=== PATIENT | female | born 1995 | race Caucasian/White ===

== ENCOUNTER 2018-12-11 12:54 | Emergency (ER) | payer OTHER ==
[~2018-12-11] VITALS: Ht 162.6 cm; Wt 97.7 kg
[2018-12-11 12:55] VITALS: BP 131/82
== END 2018-12-11 16:13 | disposition home or self-care (01) ==
LOC: M ED 12:54
DX: Z32.02 Encounter for pregnancy test, result negative (principal); R11.0 Nausea; Z77.098 Contact with and (suspected) exposure to other hazardous, chiefly nonmedicinal, chemicals

== ENCOUNTER → 2019-06-05 | Outpatient (CLI) | payer OTHER ==
[~2019-06-05] VITALS: Ht 162.6 cm; Wt 116.1 kg
[2019-06-05 19:46] VITALS: BP 135/64
--- NOTE | 2019-06-06 12:52 | HPE ---
DATE OF ADMISSION: 06/05/2019 A 23-year-old 1, para 0, last menstrual period (LMP) 11/17/2018, estimated date of confinement (EDC) 09/03/2019 at 27 at 2 weeks of gestation. Has had a 24-hour history of lower back pain and midabdominal pain when she is walking around. Her risk factors are her body mass index (BMI) is 41.2, she is Rh negative, and the baby has echogenic focus. Her laboratories are O negative, HIV negative, hepatitis negative, rapid plasma reagin (RPR) negative, varicella immune. Pap normal. Urine negative. Gonorrhea is negative. Chlamydia was positive with test of cure negative. Early 1-hour glucose tolerance test (GTT) was 121. Blood pressure is 135/64, respirations 18, pulse 81, temperature is 98.1. Urine is 1.015, pH is 8, and negative for everything else. On examination, no distress. Symphysis fundus height is 28. No contractions. Category one strip. Vertex presenting. Four-quadrant bowel sounds are noted. No vaginal bleeding or blood loss. There is periodic back pain, which is mechanical. As she has a rather protuberant abdomen, we explained to her that using a maternity belt may help relieve some of that pressure. Urine was negative. Therefore, there are no issues regarding urinary tract infection or kidney stone and abdominal discomfort is because of the distention of the uterus at 28 weeks of gestation. She also has to increase her fluids because her urine is very concentrated. She has an appointment in 1 weeks' time with [facility] ([facility]). Not doing centering. The patient was counseled with precautions. The rest of the examination is unremarkable. Normocephalic, atraumatic. Neck: Full range of motions. Pupils equal and reactive to light. Distal pulses symmetric. No evidence of deep venous thrombosis (DVT), pulmonary embolism (PE), or superficial phlebitis. Chest is clear bilaterally to bases. No wheezes or rhonchi. No costovertebral angle (CVA) tenderness. No rashes, lesions, or pruritus. No arthralgia or myalgia. No complaint of joint pain. No cough, wheeze, shortness of breath, or dyspnea on exertion. No nausea, vomiting, diarrhea, or constipation. No urgency, dysuria, or frequency. In summary, we have a 27+ week of gestation with mechanical back issues. Discharged undelivered, to followup with her clinic.
== END ==
LOC: M LDO 19:24
PROVIDERS: ATTEND Obstetrics & Gynecology
DX: O26.892 Other specified pregnancy related conditions, second trimester (principal); Z3A.27 27 weeks gestation of pregnancy; M54.5 Low back pain
CPT/HCPCS: 59025; G0378; G0463

== ENCOUNTER 2019-06-27 15:07 | Outpatient (CLI) | payer OTHER ==
[~2019-06-27] VITALS: Ht 162.6 cm; Wt 118.3 kg
[2019-06-27 15:26] VITALS: BP 117/72
[2019-06-27 17:31] LABS: HEMATOCRIT 37.9 % (36.0-47.0); MEAN CORPUSCULAR HEMOGLOBIN 27.1 pg (27.0-33.0); MEAN CORPUSCULAR HGB CONC 31.7 g/dl (32.0-36.5); MEAN CORPUSCULAR VOLUME 85.6 fl (80.0-96.0); PLATELET COUNT, AUTOMATED 288 10^3/uL (150-450); RED BLOOD COUNT 4.43 10^6/uL (4.00-5.40); WHITE BLOOD COUNT 11.3 10^3/uL (4.0-10.0)
--- NOTE | 2019-06-27 17:39 | IPNPDOC ---
Text Note Date of Service The patient was seen on 06/27/19. NOTE 24 yo at 30+1 weeks gestation presented to L&D with the complaint of in termittent dizziness over the last several months. She reports when she stands quickly after sitting for a long time that she often experiences episodes of dizziness. This is accompanied by occasional weakness and a feeing "hot" sensation. The dizziness resolves when she sits or lays down. She denies any nausea or vomiting or actual episodes of passing out. She also denies any heart palpitations or headaches or fevers/chills. She has no obstetric complaints today such as vaginal bleeding, contractions, or leakage of fluid. She endorses excellent movement. Vitals - VSS, afebrile, normotensive, non tachycardic General - AAOX3, sitting up in bed, pleasant and conversant, NAD HEENT - Cranial nerves II - XII grossly intact Abdomen - Gravid uterus. No fundal tenderness FHR tracing - Cat I throughout monitoring and appropriate for gestational age. +accels (10X10), no decels, moderate variability. No ctx on toco. Labs: TSH - 11.1 Free T4 - 0.79 CBC - 11.3>12.0/37.9<288 BMP - 139/4.0--105/27--6/0.47<87 No sign of any acute cardiac or neurologic issues. Queenie is asymptomatic at rest and dizziness occurs sporadically and mostly just after standing quickly from sitting down. Note made of elevated TSH, however free T4 is normal. Will repeat TSH as an outpatient and if still elevated and patient still symptomatic, will consider starting thyroid replacement therapy. Reassuring status. Patient not anemic. She was discharged home with return precautions. She will follow up within a week in the office. Return to care sooner for any urgent concerns. All patient questions answered. DO ANTONIO Chaudhry Fishbone I+O Eliezer ALVAREZ, I+O Laboratory Tests 06/27/19 17:11 Vital Signs Date Time Temp Pulse Resp B/P (MAP) Pulse Ox O2 Delivery O2 Flow Rate FiO2 06/27/19 15:26 99.2 100 18 117/72 (87) VONDA KING DO Jun 27, 2019 17:39
[2019-06-27 18:02] LABS: BLOOD UREA NITROGEN 6 MG/DL (7-18); CALCIUM LEVEL 8.8 MG/DL (8.5-10.1); CARBON DIOXIDE LEVEL 27 MEQ/L (21-32); CHLORIDE LEVEL 105 MEQ/L (98-107); CREATININE FOR GFR 0.47 MG/DL (0.55-1.30); FREE T4 0.79 NG/DL (0.76-1.46); GLOMERULAR FILTRATION RATE > 60.0 (>60); GLUCOSE, FASTING 87 MG/DL (70-100); SODIUM LEVEL 139 MEQ/L (136-145)
== END 2019-06-27 20:21 | disposition home or self-care (01) ==
LOC: M LDO 15:07
PROVIDERS: ATTEND Obstetrics & Gynecology
DX: O99.89 Other specified diseases and conditions complicating pregnancy, childbirth and the puerperium (principal); R42 Dizziness and giddiness; Z3A.30 30 weeks gestation of pregnancy
CPT/HCPCS: 36415; 59025; 80048; 84439; 84443; 85027; G0378; G0463

== ENCOUNTER 2019-07-02 12:43 | Outpatient (CLI) | payer OTHER ==
[~2019-07-02] VITALS: Ht 162.6 cm; Wt 119.4 kg
[2019-07-02 13:01] VITALS: BP 139/84
[2019-07-02 13:30] LABS: APPEARANCE, URINE CLOUDY (CLEAR); BACTERIA, URINE AUTO 3+ (NEGATIVE); BILIRUBIN, URINE AUTO NEGATIVE (NEGATIVE); BLOOD, URINE BLOOD 2+ (NEGATIVE); COLOR, URINE YELLOW (YELLOW); GLUCOSE, URINE (UA) AUTO NEGATIVE (NEGATIVE); KETONE, URINE AUTO TRACE mg/dL (NEGATIVE); LEUKOCYTE ESTERASE, URINE AUTO 3+ (NEGATIVE); MUCUS, URINE SMALL (NEGATIVE); NITRITE, URINE AUTO POSITIVE (NEGATIVE); PROTEIN, URINE AUTO 1+ mg/dL (NEGATIVE); RBC, URINE AUTO 18 /HPF (0-3); SPECIFIC GRAVITY URINE AUTO 1.029 (1.002-1.035); SQUAMOUS EPITHELIAL CELL UR AU 8 /HPF (0-6); TRANSITIONAL EPITHELIAL AUTO 1 /HPF; UROBILINOGEN, URINE AUTO 0.2 mg/dL (0.0-2.0); WBC, URINE AUTO TNTC /HPF (0-3)
[2019-07-02 14:03] VITALS: BP 126/68
[2019-07-02 14:54] LABS: BASO % 0.3 % (0.0-1.0); EOS # 0.2 10^3/uL (0.0-0.5); EOS % 1.3 % (0.0-3.0); HEMATOCRIT 38.9 % (36.0-47.0); HEMOGLOBIN 12.2 g/dl (12.0-15.5); LYMPH # 1.5 10^3/uL (1.5-5.0); LYMPH % 12.7 % (24.0-44.0); MEAN CORPUSCULAR HEMOGLOBIN 26.6 pg (27.0-33.0); MEAN CORPUSCULAR HGB CONC 31.4 g/dl (32.0-36.5); MEAN CORPUSCULAR VOLUME 84.7 fl (80.0-96.0); MONO # 0.7 10^3/uL (0.0-0.8); MONO % 5.8 % (0.0-5.0); NEUTROPHILS # 9.5 10^3/uL (1.5-8.5); NEUTROPHILS % 79.1 % (36.0-66.0); PLATELET COUNT, AUTOMATED 304 10^3/uL (150-450); RED BLOOD COUNT 4.59 10^6/uL (4.00-5.40); WHITE BLOOD COUNT 11.9 10^3/uL (4.0-10.0)
--- NOTE | 2019-07-02 19:28 | IPNPDOC ---
Text Note Date of Service The patient was seen on 07/02/19. NOTE Triage Note Queenie is a 24yo with SIUP at approx 31wk presenting with lower pelvic discomfort and low back discomfort that started this morning. She notes she went to work at 0600 and throughout the morning has had what she calls uterine tightness (not intermittent, but constant) and a pain that goes down into her vagina. She has had no LOF, no vaginal bleeding, and she feels good movement. No fevers/chills. No nausea/vomiting. No pain with urination or abnorm al vaginal discharge. 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 NO e/o PTL with SCE closed/thick/high. status reassuring, benign exam. Plan: -Paper script given for macrobid 100mg BID x5 days -urine culture pending -Patient endorses tested positive for influenza B and she has not received her flu vaccine because in the past she had "adverse reactions" such as bronchitis. I explained to the patient that flu in can potentially be fatal and I highly recommended that she receive the flu vaccine because the bronchitis she had previously was absolutely unrelated to flu vaccine. However, she continues to decline the vaccine. -Discussed with patient increased hydration -Discussed with patient return precautions, especially for fevers/chills and persistent back pain -Keep next OB appt on 07/04/19 -Safe for discharge home MD ANTONIO AlejandraEliezer I+O VSEliezer I+O Laboratory Tests 07/02/19 14:33 Vital Signs Date Time Temp Pulse Resp B/P (MAP) Pulse Ox O2 Delivery O2 Flow Rate FiO2 07/02/19 14:03 94 126/68 (87) 07/02/19 13:01 97.7 20 Ashley Hernández MD Jul 02, 2019 19:28
== END 2019-07-02 15:35 | disposition home or self-care (01) ==
LOC: M LDO 12:43
PROVIDERS: ATTEND Obstetrics & Gynecology
DX: O26.893 Other specified pregnancy related conditions, third trimester (principal); R10.30 Lower abdominal pain, unspecified; O23.43 Unspecified infection of urinary tract in pregnancy, third trimester; Z3A.31 31 weeks gestation of pregnancy
CPT/HCPCS: 36415; 59025; 81001; 85025; 87088; 87186; G0378; G0463

== ENCOUNTER 2019-07-15 19:44 | Outpatient (CLI) | payer OTHER ==
[2019-07-15 20:09] VITALS: BP 118/82
[2019-07-15 21:20] LABS: FREE T4 0.77 NG/DL (0.76-1.46); THYROID STIMULATING HORMONE 12.3 uIU/ML (0.358-3.740)
--- NOTE | 2019-07-15 21:41 | IPNPDOC ---
Text Note Date of Service The patient was seen on 07/15/19. NOTE 24 yo at 32+6 weeks gestation presented to L&D with the complaint of periodic dizziness and intermittent nausea. This has been a chronic problem for Ms. Burciaga and she has been seen a few times for this. She reports chronic dizziness spells over the last several months. She mostly notices this at times when standing up quickly after sitting down for a long time. She occasionally has blurry vision during these episodes and nausea. She denies any vomiting. She also denies any fevers/chills, SOB, chest pain, or dysuria. She has a history of thyroid disease prior to and she was on 25mcg daily Synthroid before she became . She not been on it since she became . Vitals - VSS, afebrile, normotensive, HR 100s, pulse ox 97-100% on RA General - AAOX3, sitting up in bed, NAD, pleasant and conversant Abdomen - Gravid uterus, no fundal tenderness NST - BL 155, moderate variability, +accels, no decels, Cat I. Intermittent breaks in tracing due to movement and patient movement. No ctx on toco. Labs: TSH - 12.3 Free T4 - 0.77 No signs of acute disease. TSH elevated, but free T4 normal. However, given her persistent symptoms, will initiate treatment of 25mcg daily Synthroid. I ordered the script at the [facility]. Reassuring status. Note given to be excused for work until her next clinic OB appointment on 21Jul2019. Return precautions discussed. All questions answered. DO ANTONIO Chaudhry Fishbone, I+O VSEliezer, I+O Vital Signs Date Time Temp Pulse Resp B/P (MAP) Pulse Ox O2 Delivery O2 Flow Rate FiO2 07/15/19 20:34 108 07/15/19 20:09 97.4 18 118/82 (94) VONDA KING DO Jul 15, 2019 21:41
== END 2019-07-15 21:30 | disposition home or self-care (01) ==
LOC: M LDO 19:44
PROVIDERS: ATTEND Obstetrics & Gynecology
DX: O26.893 Other specified pregnancy related conditions, third trimester (principal); R42 Dizziness and giddiness; R11.0 Nausea; O99.280 Endocrine, nutritional and metabolic diseases complicating pregnancy, unspecified trimester; R94.6 Abnormal results of thyroid function studies; Z3A.32 32 weeks gestation of pregnancy
CPT/HCPCS: 36415; 59025; 84439; 84443; G0378; G0463

== ENCOUNTER 2019-07-28 06:28 | Outpatient (CLI) | payer OTHER ==
[~2019-07-28] VITALS: Ht 162.6 cm; Wt 119.7 kg
[2019-07-28 06:47] VITALS: BP 140/82
[2019-07-28 07:14] VITALS: BP 118/86
[2019-07-28 07:39] VITALS: BP 138/80
[2019-07-28] MEDS ORDERED: BETAMETHASONE SOLUSPAN 6MG/ML INJ 5ML (J0702) As Ordered ONE (10:25)
[2019-07-28] MEDS ORDERED: BETAMETHASONE SOLUSPAN 6MG/ML INJ 5ML (J0702) IM SCH (10:30)
[2019-07-28 11:06] LABS: AMORPHOUS SEDIMENT SMALL (NEGATIVE); APPEARANCE, URINE CLEAR (CLEAR); BACTERIA, URINE AUTO 1+ (NEGATIVE); BILIRUBIN, URINE AUTO NEGATIVE (NEGATIVE); BLOOD, URINE BLOOD NEGATIVE (NEGATIVE); COLOR, URINE YELLOW (YELLOW); GLUCOSE, URINE (UA) AUTO NEGATIVE (NEGATIVE); KETONE, URINE AUTO 1+ mg/dL (NEGATIVE); LEUKOCYTE ESTERASE, URINE AUTO NEGATIVE (NEGATIVE); MUCUS, URINE SMALL (NEGATIVE); NITRITE, URINE AUTO NEGATIVE (NEGATIVE); PROTEIN, URINE AUTO NEGATIVE (NEGATIVE); RBC, URINE AUTO 0 /HPF (0-3); SQUAMOUS EPITHELIAL CELL UR AU 1 /HPF (0-6); UROBILINOGEN, URINE AUTO 0.2 mg/dL (0.0-2.0); WBC, URINE AUTO 0 /HPF (0-3)
--- NOTE | 2019-07-28 11:36 | HPE ---
DATE OF ADMISSION: 07/28/2019 This lady came to triage. She is a 24-year-old, 1, para 0, last menstrual period (LMP) 11/17/2018 and expected date of confinement (EDC) of 09/03/2019, at 34 and 6 weeks of gestation with a history of back pain and vaginal discharge, but no griselda vaginal bleeding. She had intercourse two days ago and has some increase in her back pain. Her risk factors is she is Rh negative with body mass index (BMI) of 41.2. She was STD positive for Chlamydia, test of cure negative. She is hypothyroid and she had a history of UTI treated with Macrobid, but no test of cure was done. Her 1-hour glucose was 133. Blood pressure highest was 140/82, the rest were normal. Pulse was 94. Respirations are 20. Temperature is 97.8. Urine was 1.010, pH 6 and a +1 ketones, trace of leukocytes. On examination, symphysis fundus height is appropriate. Four quadrant bowel sounds are noted. Category one strip. She had a BPP done which showed a biophysical of 8/8, vertex presenting, appropriate amniotic fluid. Cervical length by ultrasound showed 3.4 cm, but did not show any funneling. However, on sterile speculum examination, we visualized that the external loss was open. There was no bleeding. There was white discharge, possibly semen related. On digital examination, 1 cm right up through to the internal os. Our plan of care was to give her steroids times 24 hours, repeat her urine for culture and sensitivity for test of cure, and weekly appointments at the clinic. She is presently on monitoring at 32-36 weeks and having an KADY of 38. However, it is unlikely that she will make 38 weeks gestation. The patient expressed understanding of the plan of care. Diagrams were drawn and given to her. Numbers were applied to the diagrams. We have made an appointment for her for 1 week from today for evaluation of cervical length as well as an NST regarding contractions. The patient was counseled regarding kick chart, premature rupture of membranes and bleeding. She was discharged undelivered. We spent 1 hour with the patient.
--- NOTE | 2019-07-28 12:36 | REP ---
LIMITED OBSTETRIC SONOGRAPHY: HISTORY: For biophysical profile and assessment of cervical length. On speculum and digital examination, the cervix is open. Findings were discussed with the referring provider Dr. Da Silva. FINDINGS: Scanning demonstrates a living intrauterine gestation in a cephalic lie. Placenta is posterior without evidence of placenta previa or abruption, grade 1. Transvaginal scanning through the cervix demonstrates a cervical length measurement of 3.4 cm. The cervix appears to be closed on sonographic imaging although there is hypoechoic material along the cervical mucosa, between it and the hyperechoic cervical musculature. This in combination with the clinical history suggests the possibility of mucous material in the endocervical canal. No definite funneling is seen sonographically Biophysical profile score is 8 out of a possible 8. KADY is 10.3 cm (8.0-24.9 cm). heart rate is recorded at 139 beats per minute. S/D ratio is normal at 2.50. Electronically Signed by Juan Carlos Jeffery MD 07/28/2019 06:27 P
[2019-07-29] MEDS ORDERED: ACET-683 PO (10:09)
[2019-07-29] MEDS ORDERED: LEVO25TA5 PO (10:09)
== END 2019-07-28 10:40 | disposition home or self-care (01) ==
LOC: M LDO 06:28
PROVIDERS: ATTEND Obstetrics & Gynecology
DX: O26.893 Other specified pregnancy related conditions, third trimester (principal); M54.5 Low back pain; N89.8 Other specified noninflammatory disorders of vagina; Z3A.34 34 weeks gestation of pregnancy
CPT/HCPCS: 59025; 76815; 76817; 76819; 76820; 81001; 96372; G0378; G0463; J0702

== ENCOUNTER 2019-07-29 09:48 | Outpatient (CLI) | payer OTHER ==
[~2019-07-29] VITALS: Ht 162.6 cm; Wt 119.5 kg
[2019-07-29] MEDS ORDERED: BETAMETHASONE SOLUSPAN 6MG/ML INJ 5ML (J0702) IM ONE (10:00)
[2019-07-29 10:04] VITALS: BP 122/77
[2019-07-29] MEDS ORDERED: ACET-683 PO (10:09)
[2019-07-29] MEDS ORDERED: LEVO25TA5 PO (10:09)
[2019-07-29 10:59] VITALS: BP 125/75
== END 2019-07-29 11:00 | disposition home or self-care (01) ==
LOC: M LDO 09:48
PROVIDERS: ATTEND Obstetrics & Gynecology
DX: O34.33 Maternal care for cervical incompetence, third trimester (principal); Z3A.34 34 weeks gestation of pregnancy
CPT/HCPCS: 96372; G0378; J0702

== ENCOUNTER 2019-07-29 17:31 | Outpatient (CLI) | payer OTHER ==
[~2019-07-29] VITALS: Ht 162.6 cm; Wt 119.5 kg
[~2019-07-29 17:31] MED LIST: ACET-683 PO; LEVO25TA5 PO
--- NOTE | 2019-07-29 18:49 | IPNPDOC ---
Text Note Date of Service The patient was seen on 07/29/19. NOTE Triage Note Subjective: Queenie Burciaga is a 24yo with SIUP at approx 34wk who presents today for decreased movement. She called the call pager and stated only 3 movements in 2 hours after eating a popsicle. I encouraged her to drink and eat more and wait 1 more hour and she came in because she still did not get adequate movements. She was here earlier today for 2nd betamethasone injection. She received the first yesterday when Dr. Da Silva checked her cervix and found it to be somewhat dilated though thick. She has had no LOF, no ctx, no vaginal bleeding. Objective: Vitals wnl, afebrile General: WDWN, obese female Abdomen: soft, gravid, NTTP Cat I FHRT with +accels, -decels, mod toña [place]: no ctx Radiology: 07/28/2019 LIMITED OBSTETRIC SONOGRAPHY: FINDINGS: Scanning demonstrates a living intrauterine gestation in a cephalic lie. Placenta is posterior without evidence of placenta previa or abruption, grade 1. Transvaginal scanning through the cervix demonstrates a cervical length measurement of 3.4 cm. The cervix appears to be closed on sonographic imaging although there is hypoechoic material along the cervical mucosa, between it and the hyperechoic cervical musculature. This in combination with the clinical history suggests the possibility of mucous material in the endocervical canal. No definite funneling is seen sonographically Biophysical profile score is 8 out of a possible 8. KADY is 10.3 cm (8.0-24.9 cm). heart rate is recorded at 139 beats per minute. S/D ratio is normal at 2.50. Assessment: Queenie Burciaga is a 24yo with SIUP at approx 34wk with reassuring assessment. Reactive NST and yesterday BPP was 8/8 with KADY 10.3cm. Vitals wnl, benign exam. Plan: -safe for discharge home -keep next ob appt on Aug 04 -discussed return precautions MD Betty Alejandra Katrina D MD Jul 29, 2019 18:49
== END 2019-07-29 18:45 | disposition home or self-care (01) ==
LOC: M LDO 17:31
PROVIDERS: ATTEND Obstetrics & Gynecology
DX: O36.8130 Decreased fetal movements, third trimester, not applicable or unspecified (principal); Z3A.34 34 weeks gestation of pregnancy; O99.213 Obesity complicating pregnancy, third trimester; E66.9 Obesity, unspecified
CPT/HCPCS: 59025; G0378; G0463

== ENCOUNTER 2019-08-03 18:22 | Outpatient (CLI) | payer OTHER ==
[~2019-08-03] VITALS: Ht 162.6 cm; Wt 120.5 kg
[2019-08-03 18:46] VITALS: BP 115/61
[2019-08-03] MEDS ORDERED: TUMS750C22 PO (18:46)
--- NOTE | 2019-08-03 19:58 | IPNPDOC ---
Text Note Date of Service The patient was seen on 08/03/19. NOTE patient is a 24 yo at 34+5wks presents with concern for elevated BP taken at [facility]. patient reports she has had intermittent NUÑEZ at home, she has not taken medication for NUÑEZ. NUÑEZ goes away on its own. now denies CTX/LOF/VB. +FM Vitals: normal x 3 NAD, laying in bed abd: gravid fht: 155/mod toña/pos accel/no decel toco: quiet a/p patient @ 34+5wks, doing well, normal exam today. no e/o pre-eclampsia. discussed with patient s/s of pre-e. patient has appointment tomorrow at clinic. DO Mary VS,Eliezer, I+O VS, [place], I+O Vital Signs Date Time Temp Pulse Resp B/P (MAP) Pulse Ox O2 Delivery O2 Flow Rate FiO2 08/03/19 18:46 96.6 103 18 115/61 (79) MICHAEL ARGUETA DO Aug 03, 2019 19:52
== END 2019-08-03 20:30 | disposition home or self-care (01) ==
LOC: M LDO 18:22
PROVIDERS: ATTEND Advanced Practice Midwife
DX: O99.89 Other specified diseases and conditions complicating pregnancy, childbirth and the puerperium (principal); R51 Headache; R03.0 Elevated blood-pressure reading, without diagnosis of hypertension; Z3A.34 34 weeks gestation of pregnancy
CPT/HCPCS: 59025; G0378; G0463

== ENCOUNTER 2019-08-08 21:41 | Outpatient (CLI) | payer OTHER ==
[~2019-08-08] VITALS: Ht 162.6 cm; Wt 121.6 kg
[~2019-08-08 21:41] MED LIST changes: +TUMS750C22 PO
[2019-08-08 21:56] VITALS: BP 129/71
--- NOTE | 2019-08-08 22:31 | IPNPDOC ---
Text Note Date of Service The patient was seen on 08/08/19. NOTE patient is a 24 yo G1 @ 36+2wks gestation presents with concern for feeling intermittent sharp pain in her vagina since this AM. Also reports having sensation of intermittent abdominal cramping x 1 day. denies LOF/VB. +FM. vitals: normal NAD abd: gravid, soft, nt le: no edema erythema, nt speculum: white vaginal discharge, nt cervix visually closed ce: fingertip, long, high, medium wet prep: neg for clue cells/trich odell: neg whiff/hyphae/buds fht: 150/mod toña/pos accel/no decel toco: quiet a/p patient at 36+1wks, not in labor, no e/o infection. discussed return precautions. f/u as regularly scheduled. DO Mary VS,Eliezer, I+O VS, Fishbone, I+O Vital Signs Date Time Temp Pulse Resp B/P (MAP) Pulse Ox O2 Delivery O2 Flow Rate FiO2 08/08/19 21:56 97.8 108 129/71 (90) MICHAEL ARGUETA DO Aug 08, 2019 22:31
== END 2019-08-08 22:35 | disposition home or self-care (01) ==
LOC: M LDO 21:41
PROVIDERS: ATTEND Obstetrics & Gynecology
DX: O47.03 False labor before 37 completed weeks of gestation, third trimester (principal); Z3A.36 36 weeks gestation of pregnancy
CPT/HCPCS: 59025; G0378; G0463

== ENCOUNTER 2019-08-09 18:55 | Outpatient (CLI) | payer OTHER ==
[~2019-08-09] VITALS: Ht 162.6 cm; Wt 121.6 kg
[2019-08-09 19:32] VITALS: BP 126/78
[2019-08-09 21:00] LABS: APPEARANCE, URINE CLEAR (CLEAR); BACTERIA, URINE AUTO 2+ (NEGATIVE); BILIRUBIN, URINE AUTO NEGATIVE (NEGATIVE); BLOOD, URINE BLOOD 2+ (NEGATIVE); COLOR, URINE STRAW (YELLOW); GLUCOSE, URINE (UA) AUTO NEGATIVE (NEGATIVE); KETONE, URINE AUTO NEGATIVE (NEGATIVE); LEUKOCYTE ESTERASE, URINE AUTO 3+ (NEGATIVE); NITRITE, URINE AUTO NEGATIVE (NEGATIVE); PROTEIN, URINE AUTO NEGATIVE (NEGATIVE); RBC, URINE AUTO 1 /HPF (0-3); SPECIFIC GRAVITY URINE AUTO 1.003 (1.002-1.035); SQUAMOUS EPITHELIAL CELL UR AU 1 /HPF (0-6); UROBILINOGEN, URINE AUTO 0.2 mg/dL (0.0-2.0); WBC, URINE AUTO 20 /HPF (0-3)
[2019-08-09] MEDS ORDERED: cefTRIAXone SOD 1 GM in D5W MINI-BAG PLUS 50 ML IV ONE (21:00)
--- NOTE | 2019-08-09 21:44 | HPE ---
DATE OF ADMISSION: 08/09/2019 This lady is a 24-year-old 1, para 0, LMP 11/17/2018, EDC 09/03/2019 at 36 weeks of gestation with a history of vaginal pain and cervical pain. She was seen in triage less than 24 hours ago. She called the triage line during the day and she is here in triage at night. No contractions. No vaginal loss. No bleeding. No labor, just vaginal and cervical pain. Risk factors: She is Rh negative, BMI of 41.2, recurring UTIs, and she is hypothyroid. Laboratories: O negative, HIV negative, hepatitis negative, RPR negative, rubella immune. Varicella immune. Pap normal. Urine is negative. Gonorrhea was negative. Chlamydia was positive, test of cure was negative. 1-hour glucose 121 and 1 hour 28 glucose was 133. On examination, blood pressure 126/78, respirations 18, pulse 100, temperature is 97.0. She looks well hydrated. She is walking well. She has no gait issues. No balance issues. She had a category one strip with moderate variability and accelerations, no decelerations. No contractions. Urine was 1.003, pH of 7, 2+ bacteria, 3+ leukocytes. Urine was sent off for C and S, possibility of UTI in . She has had recurring multiple UTIs before. She was given a gram of Rocephin, to followup with oral antibiotics. Precautions were given and the patient was discharged undelivered. Maintain her appointment with the clinic on 08/19/2019.
== END 2019-08-09 22:55 | disposition home or self-care (01) ==
LOC: M LDO 18:55
PROVIDERS: ATTEND Obstetrics & Gynecology
DX: O99.89 Other specified diseases and conditions complicating pregnancy, childbirth and the puerperium (principal); Z3A.36 36 weeks gestation of pregnancy; N39.0 Urinary tract infection, site not specified
CPT/HCPCS: 59025; 81001; 87088; 87186; G0378; G0463; J0696

== ENCOUNTER 2019-08-15 20:33 | Outpatient (CLI) | payer OTHER ==
[~2019-08-15] VITALS: Ht 162.6 cm; Wt 121.4 kg
[2019-08-15 20:52] VITALS: BP 114/61
[2019-08-15] MEDS ORDERED: CEPH25SS PO (21:09)
--- NOTE | 2019-08-16 14:12 | HPE ---
DATE OF ADMISSION: 08/15/2019 HISTORY: 24-year-old 1, para 0, last menstrual period (LMP) 11/17/2018, expected date of confinement (EDC) of 09/03/2019, at 37 and 3 weeks of gestation, who came in because she was feeling off and dizzy and could not focus. Risk factors is she has recurring urinary tract infection (UTI) for which she is on medication. She was chlamydia positive, test of cure was negative. Body mass index (BMI) is 41.2. Rh is negative. Hyperthyroid. LABS: O negative. Antibodies are negative. Hepatitis negative. RPR negative. Rubella immune. Varicella immune. Pap normal. Urine negative. Gonorrhea was negative. Chlamydia was positive and test of cure was negative. Initial 1-hour glucose 121. Her 2-hour glucose was 133. On On examination today, does not appear in any distress. Seems to be able to focus well. Not complaining of any contractions, discharge or bleeding. Her gait appears to be normal. She has good balance. She has no visual field abnormalities. She can follow and focus. She is oriented to time and place. She is basically complaining of some uterine irritability secondary to movement. She has a category one strip, moderate variability, no decelerations, accelerations were noted. No contractions. She has no vaginal loss or bleeding. Blood pressure 114/61, respirations 18, pulse 104, temperature 97.1. Random glucose was 139. Urine is 1.025, pH is 5, rest is negative. In summary, we have a 37 weeks of gestation with 37 week complaints for which she was given reassurance. She has an appointment in 2 days time in the clinic for monitoring. Encouraged to keep that appointment. Precautions were given. The patient was discharged undelivered.
== END 2019-08-15 22:03 | disposition home or self-care (01) ==
LOC: M LDO 20:33
PROVIDERS: ATTEND Obstetrics & Gynecology
DX: O26.893 Other specified pregnancy related conditions, third trimester (principal); R42 Dizziness and giddiness; Z3A.37 37 weeks gestation of pregnancy; O23.43 Unspecified infection of urinary tract in pregnancy, third trimester; A74.9 Chlamydial infection, unspecified; O99.283 Endocrine, nutritional and metabolic diseases complicating pregnancy, third trimester; E05.90 Thyrotoxicosis, unspecified without thyrotoxic crisis or storm
CPT/HCPCS: 59025; G0378; G0463

== ENCOUNTER 2019-08-20 23:00 | Outpatient (CLI) | payer OTHER ==
[~2019-08-20] VITALS: Ht 162.6 cm; Wt 122.3 kg
[~2019-08-20 23:00] MED LIST changes: +CEPH25SS PO
[2019-08-20 23:12] VITALS: BP 127/70
--- NOTE | 2019-08-21 06:41 | HPE ---
DATE OF ADMISSION: 08/20/2019 This lady is a 24-year-old, 1, para 0, last menstrual period (LMP) 11/17/2018, expected date of confinement (EDC) 09/03/2019, at 38 weeks of gestation, who comes with history of decreased movement of 2 hours. This is her twelfth triage visit in the past 3 weeks. Her risk factors is she has a urinary tract infection (UTI) recurring, she had Chlamydia positive and test of cure negative, body mass index (BMI) is 41.2, Rh negative, and she is hypothyroid. On labs, O negative, hepatitis negative, RPR negative, rubella immune, varicella immune, Pap normal, urine negative, Gonorrhea negative, chlamydia positive and test of cure negative. 1-hour glucose 121, 28-week GTT was 133. Her blood pressure is 127/70, respirations 18, pulse 86 and temperature 97.6. Urine is not available. On examination, in no distress. Symphysis fundus height is 38, vertex presenting. Category one strip, moderate variability, accelerations noted, no decelerations, and no contractions. Ultrasound four quadrant, KADY is 12.84, the smallest pocket was 2.39 cm, vertex presenting, heart rate was 142 beats per minute, and spontaneous respirations are noted. Plan is the non-stress test (NST), discharge with instructions regarding kick chart, premature rupture of membranes, bleeding and when to call the provider. The patient was discharged undelivered. She has an appointment on 08/25/2019.
== END 2019-08-20 23:57 | disposition home or self-care (01) ==
LOC: M LDO 23:00
PROVIDERS: ATTEND Obstetrics & Gynecology
DX: O36.8131 Decreased fetal movements, third trimester, fetus 1 (principal); O23.43 Unspecified infection of urinary tract in pregnancy, third trimester; O99.285 Endocrine, nutritional and metabolic diseases complicating the puerperium; E03.9 Hypothyroidism, unspecified; Z3A.38 38 weeks gestation of pregnancy
CPT/HCPCS: 59025; 76815; G0378; G0463

== ENCOUNTER 2019-09-10 10:39 | Inpatient (IN) | payer OTHER ==
[~2019-09-10] VITALS: Ht 162.6 cm; Wt 124.6 kg
[2019-09-10] VITALS (8 sets, daily range): BP systolic 120–138; BP diastolic 61–83
[2019-09-10] MEDS ORDERED: LACTATED RINGER'S 1000 ML IV STA (11:01)
[2019-09-10 11:32] LABS: HEMATOCRIT 36.4 % (36.0-47.0); HEMOGLOBIN 12.1 g/dl (12.0-15.5); MEAN CORPUSCULAR HEMOGLOBIN 26.8 pg (27.0-33.0); MEAN CORPUSCULAR HGB CONC 33.2 g/dl (32.0-36.5); MEAN CORPUSCULAR VOLUME 80.7 fl (80.0-96.0); PLATELET COUNT, AUTOMATED 294 10^3/uL (150-450); RED BLOOD COUNT 4.51 10^6/uL (4.00-5.40); WHITE BLOOD COUNT 9.7 10^3/uL (4.0-10.0)
[2019-09-10] MEDS ORDERED: LR 1,000 ML IV SCH (12:00)
[2019-09-10] MEDS ORDERED: miSOPROStol 25 MCG 1/4 TAB (S0191) As Ordered ONE (12:00)
[2019-09-10] MEDS ORDERED: miSOPROStol 25 MCG 1/4 TAB (S0191) SL SCH (13:00)
--- NOTE | 2019-09-10 13:29 | HPEPDOC ---
Obstetrical History & Physical General Date of Admission Sep 10, 2019 at 10:39 History of Present Illness 24 yo G1 @41wks gestation presents for IOL for pending post dates. course complicated by maternal morbid obesity. today without concerns. 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 BREAST: . ABDOMEN: Gravid and non-tender to touch. FETUS: fetus is vertex (VTX) by Avtar and TAUS. HEART RATE: Regular rate and rhythm. LUNGS: Clear to auscultation (CTA). EXTREMITIES: non pitting edema. no erythema efw: 3800gm Vital Signs/I&O Vital Signs Date Time Temp Pulse Resp B/P (MAP) Pulse Ox O2 Delivery O2 Flow Rate FiO2 09/10/19 10:54 96.9 121 18 136/76 (96) Laboratory Data [facility] LABS Laboratory Tests 2 09/10/19 10:46: Serology Scanned Report Hepatitis B Testing 09/10/19 11:20: Nucleated Red Blood Cells % (auto) 0.0 CBC/BMP Laboratory Tests 09/10/19 11:20 Pertinent Laboratoy Data Blood Type: O- RBC Antibody Screen: Negative HIV: Negative Hepatitis B: Negative Rapid Plasma Reagin: Nonreactive Rubella: Immune Chlamydia/Gonorrhea: Negative Group B Streptococcus: Positive Anatomy Ultrasound Placenta Location: Posterior Normal Anatomy: Yes Placenta Previa: No Steroid Therapy Steroid Therapy: No Vaginal Examination Dilation: None Effacement: other Station: Other (high) Cervical Consistency: Firm Cervical Position: Posterior Presentation: Cephalic presentation Assessment Heart Rate (FHR): 145 Variability: Moderate Accelerations: Positive Decelerations: None Tocometer Contractions: No Assessment/Plan Assessment Patient is a 24 yo G1 @ 41wks gestation admitted for IOL for pinging post dates. Explained process of induction with patient starting with cervical ripening using medication and rosas balloon follows by AROM as well as oxytocin as indicated. External as well as internal monitoring of contractions and FHT discussed. Risks of emergent delivery, infection requiring antibioti cs, bleeding requiring blood transfusion and associated risks, use of forceps or vacuum for operative vaginal delivery in an emergency, and episiotomy explained to patient. Plan Admit and orient. 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 Diet: regular Group B Streptococcus (GBS) positive, start PCN once in active labor Labs and intravenous (IV) per unit protocol. cytotec, rosas bulb, pitocin and arom as needed for IOL pelvis adequate for trial of labor MICHAEL ARGUETA DO Sep 10, 2019 13:23
[2019-09-10] MEDS: miSOPROStol 50 MCG 1/2 TAB (S0191) SL SCH ×2 (15:59→20:03)
--- NOTE | 2019-09-10 20:40 | IPNPDOC ---
Text Note Date of Service The patient was seen on 09/10/19. NOTE patient feeling occasional cramping. no regular contractions. patient received her third dose of cytotec. vitals: normal fht: 140/mod toña/pos accel/no decel toco: irregular ctx a/p continue cervical ripening. check patient prior to next cytotec dose. Mary, VS,Fishbone, I+O VS, Fishbone, I+O Laboratory Tests 09/10/19 11:20 Vital Signs Date Time Temp Pulse Resp B/P (MAP) Pulse Ox O2 Delivery O2 Flow Rate FiO2 09/10/19 18:01 97.2 79 18 135/83 (100) MICHAEL ARGUETA DO Sep 10, 2019 20:40
[2019-09-11] VITALS (22 sets, daily range): BP systolic 108–148; BP diastolic 55–93
[2019-09-11] MEDS: miSOPROStol 50 MCG 1/2 TAB (S0191) SL SCH (00:12)
[2019-09-11] MEDS ORDERED: LEVOTHYROXINE 25MCG TABLET (0.025MG) PO SCH (06:00)
--- NOTE | 2019-09-11 06:09 | IPNPDOC ---
Text Note Date of Service The patient was seen on 09/11/19. NOTE Patient received 4 doses of cytotec, 25mcg x1 and 50mcg x 2 buccal. She is f eeling her contractions. vitals: normal NAD abd: gravid, nt fht: 130/mod toña/pos accel/ no decel toco: ctx q 2mins ce: 1-2/0/high, rosas bulb placed with 80cc on cervical side. a/p patient is not in labor. Continue induction. IV pain medication per request. additional cytotec once patient stops megha. start pcn once rosas bulb is out. DO Mary VS,Marvelbone, I+O VS, Fishbone, I+O Laboratory Tests 09/10/19 11:20 Vital Signs Date Time Temp Pulse Resp B/P (MAP) Pulse Ox O2 Delivery O2 Flow Rate FiO2 09/10/19 18:01 97.2 79 18 135/83 (100) MICHAEL ARGUETA DO Sep 11, 2019 06:09
[2019-09-11] MEDS ORDERED: MORPHINE 10 MG/ML 1ML VIAL (J2270) IM ONE (06:15)
[2019-09-11] MEDS ORDERED: MORPHINE 10 MG/ML 1ML VIAL (J2270) IV ONE (06:15)
[2019-09-11] MEDS ORDERED: PROMETHAZINE INJ 25 MG/ML VIAL (J2550) IV ONE ×2 (06:15→19:15)
[2019-09-11] MEDS ORDERED: PENICILLIN G POTASSIUM IV 5 MU in D5W MINI-BAG PLUS 100 ML IV STA (11:18)
[2019-09-11] MEDS ORDERED: OXYTOCIN DRIP 30 UNITS in IV 1 EA IV SCH (12:00)
[2019-09-11] MEDS: PENICILLIN G POTASSIUM IV 2.5 MU in IV 1 EA IV SCH ×2 (15:21→20:02)
--- NOTE | 2019-09-11 18:33 | IPNPDOC ---
Text Note Date of Service The patient was seen on 09/11/19. NOTE patient is feeling her contractions. coping without problem. SROM at around 1810. pit: 6mU/min fht: 150/mod toña/pos accel/no decel toco: ctx q 2-3 mins ce: 11/11/-2 a/p patient in latent labor. continue to titrate pit to effect. continue with PCN for GBS prophy. recheck in 6hrs. Le, DO VS,Marvelbone, I+O VS, Fishbone, I+O Vital Signs Date Time Temp Pulse Resp B/P (MAP) Pulse Ox O2 Delivery O2 Flow Rate FiO2 09/11/19 16:37 71 120/55 (76) 09/11/19 12:06 98.2 16 09/11/19 07:08 Room Air MICHAEL ARGUETA DO Sep 11, 2019 18:32
[2019-09-11] MEDS ORDERED: BUTORPHANOL 2 MG/ML INJ (J0595) IV PRN (19:15)
[2019-09-11] MEDS ORDERED: FENTANYL 2MCG/ML ROPIVACAINE 0.2% IN 0.9% NACL 100ML IVBAG As Ordered ONE (21:26)
[2019-09-11] MEDS ORDERED: DOCUSATE SODIUM 100 MG CAP PO PRN (22:15)
[2019-09-11] MEDS ORDERED: MEASLES,MUMPS,RUBELLA VACCINE INJ (MMR-II) (90707) SC SCH (22:15)
[2019-09-11] MEDS ORDERED: DIBUCAINE 1% OINTMENT 30GM TOP PRN (22:15)
[2019-09-11] MEDS ORDERED: ACETAMINOPHEN TAB 650MG DOSE (2X325MG) PO PRN (22:15)
[2019-09-11] MEDS ORDERED: RHOGAM 300 MCG (1500 IU) INJ (J2790) IM SCH (22:15)
--- NOTE | 2019-09-11 22:44 | DNPDOC ---
[facility] Delivery Note Delivery Note DATE OF DELIVERY: 09/11/2019 PREDELIVERY DIAGNOSIS: 41+1/7 weeks' gestation and labor. POST DELIVERY DIAGNOSIS: 1) 2) Partial placental abruption 3) First degree laceration PROCEDURE: Vacuum Assisted Vaginal Delivery BLUEPRINT CLERK: Dr. Michael Hernandez, DO ANESTHESIA: None ESTIMATED BLOOD LOSS: 350 mL. FINDINGS: 3346gm, Male , Score , [place]ero cord wrapped around foot. DELIVERY SUMMARY: Counseled low vacumn delivery VERBAL Indication: Non-reassuring heart tracing bradycardia in 90s Checklist Cervix: c/c/+2 Presentation, Postion: OA Anesthesia: unmedicated Membranes ruptured: yes Pelvis: adequate by clinical pelvimetry for EFW 3800gm Episiotomy: none C/Section available: Yes C/Section offered: No Consent pt: Yes - verbal Providers: Dr Michael Hernandez FHT: 90s CTX: q 1-2mins Patient counseled pt on risks of vacuum delivery: laceration/bruising/bleeding, maternal vaginal lacerations, episiotomy or extension, possible need for section. Patient verbally consented. Patient pushing baby to c/c/+2 persistent bradycardia in 90s and difficulty with complete tracing. Maternal pelvis was adequate. Operative vaginal delivery recommended to the patient at that time to shorten the second stage of labor for concern. The patient agreed to proceed. Kiwi vacuum called for and placed. Placement was checked to ensure no involvement of maternal vaginal tissue in the vacuum. No fontanels were included within the suction. Suction was applied into the green and traction was applied over push. Head delivered over 1 set of contractions. There was 0 pop off. The suction was removed and the vertex was then delivered with one additional materal expulsive effort. Vertex was OA. Baby restituted ROT. The anterior (left) shoulder was then delivered with downward traction followed by the posterior (right) shoulder with gentle upward traction. The body delivered with ease. B andalero cord noted and reduced from body and foot. Cord clamped x2, cut and baby with vigorous cries and placed on maternal abdomen. Pitocin bolus started, placenta delivered spontaneously. Placenta with clotted blood consistent with partial abruption. Marginal and velamentous cord insertion, appears intact 3V cord. Fundus massaged firm. The cervix/vagina/perineum were inspected. A first degree laceration was noted. Laceration repaired in the usual fashion. Lidocaine 1% used for local analgesic. Right labia laceration, not bleeding and did not need repair. Baby was taken to NICU for observation due to vacuum delivery. EBL 350cc. MICHAEL HERNANDEZ DO Sep 11, 2019 22:44
[2019-09-11] MEDS: IBUPROFEN 800 MG TAB PO PRN (22:59)
[2019-09-12] MEDS ORDERED: LIDOCAINE 1% MDV 20ML VIAL SC ONE (01:15)
[2019-09-12 01:41] VITALS: BP 107/63
[2019-09-12] MEDS: LEVOTHYROXINE 25MCG TABLET (0.025MG) PO SCH (05:27)
[2019-09-12 06:00] VITALS: BP 115/57
--- NOTE | 2019-09-12 06:48 | IPNPDOC ---
Progress Note Date of Service: Sep 12, 2019 Day#: 1 Progress Note SUBJECT: Patient is a 24 yo S/P VAVD, ppd #1. Late delivery yesterday ni ght. First degree midline lac repaired. She has been ambulating, voiding spontaneously without issue and tolerating regular diet. Breast feeding without issue. Reports lochia is like a normal period. Undecided on contraceptive at this time. OBJECTIVE: VITAL SIGNS: Within normal limits, afebrile. Alert and oriented times three. Abdomen: Fundus firm at U-2. Soft, NTTP. LE: bilateral non pitting edema. no erythema/tenderness A/P ppd #1. encourage ambulating and bf. contraceptive counseling. anticipated d/c home on ppd #3 due to late delivery last night. Le, DO VS, I&O, 24H, Fishbone Vital Signs/I&O Vital Signs Date Time Temp Pulse Resp B/P (MAP) Pulse Ox O2 Delivery O2 Flow Rate FiO2 09/12/19 06:00 97.9 91 18 115/57 (76) 96 Room Air I&O- Last 24 Hours up to 6 AM 09/12/19 05:59 Intake Total 2900 ml Output Total 1400 ml Balance 1500 ml MICHAEL ARGUETA DO Sep 12, 2019 06:48
[2019-09-12] MEDS: IBUPROFEN 800 MG TAB PO PRN ×2 (07:59→20:48)
[2019-09-12] MEDS ORDERED: PRENATAL VITAMINS CHEWABLE TABLET PO SCH (09:00)
[2019-09-12 17:49] VITALS: BP 131/63
[2019-09-13] MEDS: LEVOTHYROXINE 25MCG TABLET (0.025MG) PO SCH (05:50)
[2019-09-13 06:00] VITALS: BP 109/51
--- NOTE | 2019-09-13 07:45 | IPNPDOC ---
Progress Note Date of Service: Sep 13, 2019 Day#: 2 Progress Note SUBJECT: Patient is a 24 yo S/P VAVD, ppd #2. She has been ambulating, v oiding spontaneously without issue and tolerating regular diet. Breast feeding without issue. Reports lochia is like a normal period. Patient is ambulating well. Reports some cramping with . Denies any pain. Voiding without difficulty. OBJECTIVE: VITAL SIGNS: Within normal limits, afebrile. Alert and oriented times three. Breasts without erythema and nontender Breath sounds clear to auscultation. Heart rate: Regular rate and rhythm, no murmurs, rubs or gallops. Abdomen: Fundus firm at U-2. Soft, NTTP. Minimal lochia. Perineum intact. ASSESSMENT: Patient is a 24 yo S/P VAVD, ppd #2. Vitals within normal limits, afebrile, hemodynamically stable with no evidence of infection. PLAN: 1. Discharge to home today. 2. Tylenol and Motrin for pain. 3. Encourage breast feeding and ambulation. 4. Unsure for contraception for now. 5. Routine PP visit in 6 weeks in clinic. 6. Discussed return precautions at length. VS, I&O, 24H, Fishbone Vital Signs/I&O Vital Signs Date Time Temp Pulse Resp B/P (MAP) Pulse Ox O2 Delivery O2 Flow Rate FiO2 09/13/19 06:00 97.6 85 16 109/51 (70) 99 Room Air Erinn Gonzalez MD Sep 13, 2019 07:45
[2019-09-13] MEDS ORDERED: DOCU100C16 PO (07:48)
[2019-09-13] MEDS ORDERED: IBUP80TA PO (07:48)
[2019-09-13] MEDS: IBUPROFEN 800 MG TAB PO PRN (08:26)
--- NOTE | 2019-09-13 15:10 | IPN ---
DATE: 09/13/2019 This patient and have requested circumcision of their male . After discussing risks and benefits of circumcision, the medical and nonmedical indications, penile block and aftercare, expressed understanding of penile block and aftercare and bleeding, signed the consent form. We discussed the fact baby is under the lights, bilirubin was elevated, and we are going to wait until the baby comes off lights and bilirubin has come down in order to do the circumcision. All questions were answered. 20-minute discussion. We await the clearance by the camp program director.
== END 2019-09-13 12:20 | disposition home or self-care (01) | DRG 805 ==
LOC: M LDI 10:39 → M OBS 09-12 01:27
PROVIDERS: ADMIT Obstetrics & Gynecology; ATTEND Obstetrics & Gynecology
PROC: 10D07Z6 Extraction of Products of Conception, Vacuum, Via Natural or Artificial Opening (ICD-10-PCS; principal; 2019-09-11)
PROC: 3E0P7GC Introduction of Other Therapeutic Substance into Female Reproductive, Via Natural or Artificial Opening (ICD-10-PCS; 2019-09-11)
PROC: 0HQ9XZZ Repair Perineum Skin, External Approach (ICD-10-PCS; 2019-09-11)
DX: O48.0 Post-term pregnancy (principal); Z37.0 Single live birth; O45.93 Premature separation of placenta, unspecified, third trimester; Z3A.41 41 weeks gestation of pregnancy; O99.214 Obesity complicating childbirth; E66.9 Obesity, unspecified; O99.824 Streptococcus B carrier state complicating childbirth; O69.82X0 Labor and delivery complicated by other cord entanglement, without compression, not applicable or unspecified; O70.0 First degree perineal laceration during delivery

== ENCOUNTER 2019-11-08 13:32 | Emergency (ER) | payer OTHER ==
[~2019-11-08] VITALS: Ht 162.6 cm; Wt 119.0 kg
[~2019-11-08 13:32] MED LIST changes: +DOCU100C16 PO; +IBUP80TA PO
[2019-11-08] MEDS ORDERED: PREN27TA3 (13:38)
[2019-11-08] MEDS ORDERED: SYNT50TA (13:38)
[2019-11-08] MEDS ORDERED: NS 1,000 ML IV ONE (14:00)
[2019-11-08 14:22] LABS: BASO % 0.6 % (0.0-1.0); EOS # 0.2 10^3/uL (0.0-0.5); EOS % 3.5 % (0.0-3.0); HEMATOCRIT 36.1 % (36.0-47.0); HEMOGLOBIN 11.4 g/dl (12.0-15.5); LYMPH # 1.7 10^3/uL (1.5-5.0); LYMPH % 25.7 % (24.0-44.0); MEAN CORPUSCULAR HEMOGLOBIN 24.4 pg (27.0-33.0); MEAN CORPUSCULAR HGB CONC 31.6 g/dl (32.0-36.5); MEAN CORPUSCULAR VOLUME 77.3 fl (80.0-96.0); MONO # 0.7 10^3/uL (0.0-0.8); MONO % 10.7 % (0.0-5.0); NEUTROPHILS # 3.9 10^3/uL (1.5-8.5); NEUTROPHILS % 59.2 % (36.0-66.0); PLATELET COUNT, AUTOMATED 316 10^3/uL (150-450); RED BLOOD COUNT 4.67 10^6/uL (4.00-5.40); WHITE BLOOD COUNT 6.7 10^3/uL (4.0-10.0)
[2019-11-08 14:47] LABS: CK-MB VALUE MASS < 1.0 NG/ML (<3.6); CPK CREATINE PHOSPHOKINASE 43 U/L (26-192); FREE T4 2.91 NG/DL (0.76-1.46); MAGNESIUM LEVEL 1.6 MG/DL (1.8-2.4); MB/CK RELATIVE INDEX 2.33 (< OR =4); THYROID STIMULATING HORMONE 0.021 uIU/ML (0.358-3.740); TROPONIN I < 0.02 NG/ML (< 0.10)
[2019-11-08 15:10] VITALS: BP 120/57
--- NOTE | 2019-11-09 03:25 | ECGEPIP ---
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
== END 2019-11-08 15:46 | disposition home or self-care (01) ==
LOC: M ED 13:32
DX: R79.9 Abnormal finding of blood chemistry, unspecified (principal); E03.9 Hypothyroidism, unspecified; R00.0 Tachycardia, unspecified; Z79.899 Other long term (current) drug therapy